=== PATIENT | male | born 1970 | race Caucasian/White ===

== ENCOUNTER 2021-10-29 17:51 | Emergency (ER) | payer OTHER ==
[2021-10-29 17:58] VITALS: BP 154/92; PULSE 69
[2021-10-29] MEDS: Sodium Chloride 0.9% 1,000 ML IV ONE (18:16)
[2021-10-29] MEDS: Sodium Chloride 0.9% 10 ML Syringe FLUSH PRN (18:16)
[2021-10-29 18:38] LABS: ANION GAP 12.6 mmol/L (5-15); CHLORIDE,CL 101 mmol/L (98-107); SODIUM,NA 135 mmol/L (136-145)
[2021-10-29] MEDS: Ondansetron 4 MG Tab.DIS PO ONE (19:28)
[2021-10-30] MEDS: Ondansetron 4 MG Tab.DIS ONE (08:59)
== END 2021-10-29 19:30 | disposition home or self-care (01) ==
LOC: KA.ED 17:51
DX: R60.0 Localized edema (principal); F10.20 Alcohol dependence, uncomplicated; Y90.8 Blood alcohol level of 240 mg/100 ml or more
CPT/HCPCS: 36415; 80053; 80307; 83690; 85025; 99284; A9270-GY; J3490; J7030

== ENCOUNTER 2022-02-13 20:10 | Emergency (ER) | payer OTHER ==
[2022-02-13 21:07] LABS: ANION GAP 13.4 mmol/L (5-15); CHLORIDE,CL 101 mmol/L (98-107); SODIUM,NA 140 mmol/L (136-145)
[2022-02-13 21:08] LABS: ESTIMATED GFR 106 mL/min (>=60)
[2022-02-13 21:44] LABS: BARBITURATE SCREEN,URINE NEGATIVE (NEGATIVE); BENZODIAZEPINES SCREEN,URINE NEGATIVE (NEGATIVE); TCA SCREEN,URINE NEGATIVE (NEGATIVE); THC SCREEN,URINE 50 NG/ML NEGATIVE (NEGATIVE)
[2022-02-13] MEDS ORDERED: LORazepam 2 MG/ML SDV IVPUSH ONE (22:18)
[2022-02-13] MEDS ORDERED: Sodium Chloride 0.9% 10 ML Syringe FLUSH PRN (22:18)
[2022-02-13] MEDS ORDERED: Sodium Chloride 0.9% 1,000 ML IV SCH (22:30)
== END 2022-02-13 23:20 ==
LOC: KA.ED 20:10
DX: F41.9 Anxiety disorder, unspecified (principal); F10.129 Alcohol abuse with intoxication, unspecified; R74.8 Abnormal levels of other serum enzymes; R45.851 Suicidal ideations; Z28.310 Unvaccinated for COVID-19; Y90.8 Blood alcohol level of 240 mg/100 ml or more; Z20.822 Contact with and (suspected) exposure to COVID-19
CPT/HCPCS: 36415; 71045; 80053; 80143; 80305-QW; 80307; 81001; 82150; 85025; 93005; 93010; 96374; 99285; 99285-25; J2060; J7030; U0002

== ENCOUNTER 2024-08-20 18:56 | Emergency (ER) | payer OTHER ==
[2024-08-20] MEDS ORDERED: Sodium Chloride 0.9% 10 ML Syringe FLUSH PRN (19:21)
[2024-08-20 19:31] LABS: BASOPHILS ABSOLUTE AUTO 0.02 10^3/uL (0.00-0.10); BASOPHILS PERCENT AUTO 0.4 % (0.0-1.0); EOSINOPHILS ABSOLUTE AUTO 0.02 10^3/uL (0.10-0.30); EOSINOPHILS PERCENT AUTO 0.4 % (1.0-3.0); HEMATOCRIT 36.3 % (40.0-52.0); HEMOGLOBIN 12.5 g/dL (13.0-17.0); LYMPHOCYTES ABSOLUTE AUTO 1.26 10^3/uL (1.00-4.00); LYMPHOCYTES PERCENT AUTO 22.6 % (20.0-40.0); MEAN CORPUSCULAR HEMOGLOBIN 30.1 pg (27.0-31.0); MEAN CORPUSCULAR HGB CONC 34.4 g/dL (32.0-36.0); MEAN CORPUSCULAR VOLUME 87.5 fL (82.0-92.0); MEAN PLATELET VOLUME 8.7 fL (7.4-10.4); MONOCYTES ABSOLUTE AUTO 0.26 10^3/uL (0.10-0.80); MONOCYTES PERCENT AUTO 4.7 % (2.0-8.0); NEUTROPHILS ABSOLUTE AUTO 4.02 10^3/uL (2.50-7.00); NEUTROPHILS PERCENT AUTO 71.9 % (50.0-70.0); PLATELET COUNT,PLT 187 10^3/uL (150-400); RED BLOOD CELL COUNT 4.15 10^6/uL (4.50-6.00); RED CELL DISTRIBUTION WIDTH 13.2 % (11.5-14.5); WHITE BLOOD CELL COUNT,WBC 5.58 10^3/uL (5.00-10.00)
[2024-08-20 19:44] LABS: ALBUMIN 3.55 g/dL (3.40-5.00); ANION GAP 14.4 mmol/L (5-15); BILIRUBIN TOTAL 0.3 mg/dL (0.2-1.0); CALCIUM 8.1 mg/dL (8.7-10.3); CARBON DIOXIDE,CO2 23.9 mmol/L (21.0-32.0); CREATININE 0.71 mg/dL (0.51-1.17); EST CRCL DRUG DOSING (CG) 130.55 mL/min; POTASSIUM,K 4.3 mmol/L (3.5-5.1); PROTEIN TOTAL,TP 6.4 g/dL (6.4-8.2)
[2024-08-20 19:47] LABS: O2 DELIVERY DEVICE ROOM AIR; PCO2 ARTERIAL 32 mmHG (35-48); PH,ARTERIAL 7.45 pH (7.35-7.45); PO2 ARTERIAL 100 mmHG (83-108)
[2024-08-20 19:48] LABS: BASE EXCESS ARTERIAL -1 mmol/L ((-2)-(+3)); BICARBONATE,ARTERIAL 22 mmol/L (21-28); O2 SATURATION ARTERIAL 98.1 %
[2024-08-20] MEDS: Sodium Chloride 0.9% 1,000 ML IV ONE (20:07)
[2024-08-20] MEDS: LORazepam 2 MG/ML SDV IVPUSH ONE (20:07)
== END 2024-08-20 21:35 | disposition home or self-care (01) ==
LOC: KA.ED 18:56
DX: R06.02 Shortness of breath (principal); R74.8 Abnormal levels of other serum enzymes; F41.9 Anxiety disorder, unspecified; F10.129 Alcohol abuse with intoxication, unspecified; I10 Essential (primary) hypertension; Z79.899 Other long term (current) drug therapy; Z88.8 Allergy status to other drugs, medicaments and biological substances
CPT/HCPCS: 36600; 71045; 80053; 80307; 82803; 84484; 85025; 85379; 93005; 96361; 96374; 99285-25; J2060; J7030